=== PATIENT | male | born 1990 | race Caucasian/White ===

== ENCOUNTER 2016-12-10 17:31 | Emergency (ER) | payer BC, OTHER ==
--- NOTE | 2016-12-10 21:32 | RAD ---
LEFT HAND THREE VIEWS 12/10/16 No fractures were appreciated. Some surgical clips are seen in the distal wrist laterally. The carpa ls all appeared intact. No abnormalities of the fingers were seen. IMPRESSION: No acute findings. POS: HOME
== END 2016-12-10 18:18 | disposition home or self-care (01) ==
LOC: BURERS 17:31
DX: S60.222A Contusion of left hand, initial encounter (principal); I10 Essential (primary) hypertension; N19 Unspecified kidney failure; Z87.891 Personal history of nicotine dependence; W22.8XXA Striking against or struck by other objects, initial encounter

== ENCOUNTER 2017-02-23 23:48 | Emergency (ER) | payer BC, OTHER ==
[2017-02-24 00:31] LABS: #Basophils 0.1 thou/uL (0.0-0.2); #Eosinphils 0.4 thou/uL (0.0-0.7); #Lymphocytes 1.7 thou/uL (1.20-3.40); #Monocytes 0.4 thou/uL (0.11-0.59); %Basophils 1.6 % (0.0-1.0); %Eosinophils 7.7 % (0.0-10.0); %Lymphocytes 30.3 % (21.0-51.0); %Monocytes 7.1 % (0.0-10.0); %Neutrophils 53.3 % (42.0-75.0); Hemoglobin 12.5 g/dL (14.0-18.0); Mean Corpuscular HGB CONC 35.3 g/dL (32.0-36.0); Mean Corpuscular Hemoglobin 32.5 pg (27.0-31.0); Mean Corpuscular Volume 92.1 fl (80.0-94.0); Mean Platelet Volume 8.1 fL (7.4-10.4); Platelet Count 199 thou/uL (130-400); RBC Distribution Width 14.5 % (11.5-14.5); Red Blood Cell (RBC) Count 3.86 mill/uL (4.70-6.10); White Blood Cell (WBC) Count 5.5 thou/uL (4.8-10.8)
[2017-02-24 00:43] LABS: Anion Gap 19 mmol/L (10-20); BUN (Urea Nitrogen) 30 mg/dL (8.9-20.6); Calc. Creatinine Clearance 0 mL/min (70-130); Calcium 8.8 mg/dL (7.8-10.44); Carbon Dioxide 31 mmol/L (22-29); Chloride 92 mmol/L (98-107); Estimated GFR-MDRD 8; Glucose 103 mg/dL (70-105); Potassium 4.3 mmol/L (3.5-5.1); Sodium 138 mmol/L (136-145)
== END 2017-02-24 01:09 | disposition home or self-care (01) ==
LOC: BURERS 23:48
DX: I10 Essential (primary) hypertension (principal); N19 Unspecified kidney failure; Z99.2 Dependence on renal dialysis; Z87.891 Personal history of nicotine dependence; Z79.899 Other long term (current) drug therapy
CPT/HCPCS: 36415; 80048; 84443; 85025; 99283

== ENCOUNTER 2020-01-24 09:45 | Outpatient (CLI) | payer BC, MEDICARE, MEDICAID ==
[2020-01-24 10:20] LABS: Bilirubin Negative (Negative); Blood, Urine Small (Negative); Clarity Clear (Clear); Glucose, Urine (Dipstick) Negative (Negative); Leukocyte Negative (Negative); Nitrite Negative (Negative); Protein, Urine (Dipstick) Trace mg/dL (Neg-Trace); Urobilinogen 0.2 mg/dL (Less than 2)
[2020-01-24 10:34] LABS: Urine Culture Reflex No No
[2020-01-24 10:36] LABS: RBC/HPF 0-3 HPF (0-3); Squamous Epithelial 0-3 HPF (0-3); WBC/HPF 0-3 HPF (0-3)
[2020-01-24 10:37] LABS: Bacteria/HPF None Seen HPF (None Seen)
[2020-01-24 10:54] LABS: Band 1 % (5-11); Eosinophils 3 % (0-10); Hemoglobin 11.4 g/dL (14.0-18.0); Lymphocytes 7 % (21-51); MDiff Complete? YES; Mean Corpuscular HGB CONC 30.7 g/dL (32.0-36.0); Mean Corpuscular Hemoglobin 29.9 pg (27.0-31.0); Mean Corpuscular Volume 97.2 fL (78.0-98.0); Mean Platelet Volume 8.4 fL (7.4-10.4); Monocytes 2 % (0-10); Neutrophil 85 % (42-75); Platelet Count 252 thou/uL (130-400); RBC Distribution Width 14.5 % (11.5-14.5); White Blood Cell (WBC) Count 2.4 thou/uL (4.8-10.8)
[2020-01-24 11:24] LABS: Albumin 4.8 g/dL (3.5-5.0); Anion Gap 13 mmol/L (10-20); BUN (Urea Nitrogen) 21 mg/dL (8.9-20.6); BUN/Creatinine Ratio 11.93; Calc. Creatinine Clearance 0 mL/min (70-130); Calcium 9.9 mg/dL (7.8-10.44); Carbon Dioxide 20 mmol/L (22-29); Chloride 111 mmol/L (98-107); Estimated GFR-MDRD 46; Glucose 98 mg/dL (70-105); Magnesium 1.8 mg/dL (1.6-2.6); Potassium 5.4 mmol/L (3.5-5.1); Sodium 139 mmol/L (136-145)
[2020-01-24 18:05] LABS: Creatinine, Urine 175.03 mg/dL (63-166); Microalbumin Urine 6.6 mg/dL (0.5-50.0); Microalbumin/Creat Ratio 37.7 mg/g (Less than 30)
== END 2020-01-24 09:46 | disposition home or self-care (01) ==
LOC: BURLAB 09:45
DX: Z48.288 Encounter for aftercare following multiple organ transplant (principal); D89.9 Disorder involving the immune mechanism, unspecified; Z94.83 Pancreas transplant status; Z94.0 Kidney transplant status
CPT/HCPCS: 36415; 80069; 80197; 81001; 82043; 83735; 85025

== ENCOUNTER 2022-12-14 16:38 | Emergency (ER) | payer MEDICARE, BC, OTHER ==
[2022-12-14] MEDS ORDERED: Lidocaine 1% PF 5 ML VIAL ONE ×2 (16:46→16:48)
== END 2022-12-14 17:23 | disposition home or self-care (01) ==
LOC: BURERS 16:38
DX: S61.411A Laceration without foreign body of right hand, initial encounter (principal); I12.0 Hypertensive chronic kidney disease with stage 5 chronic kidney disease or end stage renal disease; N18.6 End stage renal disease; Z99.2 Dependence on renal dialysis; W22.8XXA Striking against or struck by other objects, initial encounter
CPT/HCPCS: 12002